=== PATIENT | female | born 1995 | race Caucasian/White ===

== ENCOUNTER 2019-03-31 00:10 | Emergency (ER) | payer SELFPAY ==
[2019-03-31 01:03] LABS: ABSOLUTE EOSINOPHILS # (AUTO) 0.2 10^3/uL (0.0-0.6); ABSOLUTE LYMPHOCYTES (AUTO) 1.6 10^3/uL (0.5-4.7); ABSOLUTE MONOCYTES (AUTO) 0.5 10^3/uL (0.1-1.4); ABSOLUTE NEUT (AUTO) 5.7 10^3/uL (1.7-8.2); BASOPHILS % (AUTO) 0.4 % (0-2); EOSINOPHILS % (AUTO) 2.1 % (0-6); HEMATOCRIT 40.1 % (36.0-47.0); HEMOGLOBIN 13.8 g/dL (12.0-15.5); MEAN CORPUSCULAR HEMOGLOBIN 30.5 pg (27.0-33.4); MEAN CORPUSCULAR HGB CONC 34.4 g/dL (32.0-36.0); MEAN CORPUSCULAR VOLUME 89 fl (80-97); MONOCYTES % (AUTO) 6.4 % (3-13); PLATELET COUNT 336 10^3/uL (150-450); RED BLOOD COUNT 4.52 10^6/uL (3.72-5.28); RED CELL DISTRIBUTION WIDTH 12.4 % (11.5-14.0); SEGMENTED NEUTROPHILS % (AUTO) 71.1 % (42-78); TOTAL CELLS COUNTED % (AUTO) 100 %
[2019-03-31 01:13] LABS: APPEARANCE,URINE CLOUDY; BILIRUBIN,URINE NEGATIVE (NEGATIVE); COLOR,URINE YELLOW; GLUCOSE, URINE NEGATIVE (NEGATIVE); KETONES,URINE NEGATIVE (NEGATIVE); LEUKOCYTE ESTERASE,URINE NEGATIVE (NEGATIVE); NITRITE,URINE NEGATIVE (NEGATIVE); PROTEIN,URINE NEGATIVE (NEGATIVE); URINE SPECIFIC GRAVITY 1.015; UROBILINOGEN,URINE NEGATIVE mg/dL (<2.0)
[2019-03-31 01:25] LABS: ALBUMIN 4.5 g/dL (3.5-5.0); ALKALINE PHOSPHATASE 82 U/L (38-126); ANION GAP 12 (5-19); ASPARTATE AMINO TRANSFERASE 28 U/L (14-36); BILIRUBIN,DIRECT 0.3 mg/dL (0.0-0.4); BILIRUBIN,TOTAL 0.4 mg/dL (0.2-1.3); BLOOD UREA NITROGEN 20 mg/dL (7-20); CALCIUM 10.3 mg/dL (8.4-10.2); CARBON DIOXIDE 26 mmol/L (22-30); CHLORIDE 102 mmol/L (98-107); GLUCOSE 88 mg/dL (75-110); POTASSIUM 3.9 mmol/L (3.6-5.0); TOTAL PROTEIN 7.9 g/dL (6.3-8.2)
[2019-03-31 01:33] LABS: ALCOHOL < 10 mg/dL (NONE DETECTED)
[2019-03-31 02:06] LABS: URINE AMPHETAMINES SCREEN NEGATIVE; URINE BARBITURATES SCREEN NEGATIVE; URINE BENZODIAZEPINES SCREEN NEGATIVE; URINE COCAINE SCREEN NEGATIVE; URINE MARIJUANA (THC) SCREEN NEGATIVE; URINE METHADONE SCREEN NEGATIVE; URINE PHENCYCLIDINE SCREEN NEGATIVE
[2019-03-31] MEDS ORDERED: LIDOCAINE 2% INJ (20 MG/ML) 20 ML MDV INJ ONE (02:08)
--- NOTE | 2019-03-31 02:13 | ER Document Report ---
ED General - General Chief Complaint: Seizure Stated Complaint: POSS SEIZURE Time Seen by Provider: 03/31/19 01:49 Primary Care Provider: MIKA CHOW MD [Primary Care Provider] - Follow up as needed CONSTANTIN PAGE MD [NO LOCAL MD] - Follow up as needed Notes: 23 year old female brought in by EMS for possible seizure at home. Patient states she was she has a history of hemiplegic migraine with seizures. States that typically when she feels one coming on she lays herself down on the ground after making sure her children are stable and then she lays there while her arms shake. States that today she was able to get home from work in time to lay down on the ground and then she laid there while her arms were shaking like shivers. Did not lose consciousness and was eventually able to tell her that she thought had gone on long enough and that he should take her to the emergency department because she felt she needed medications. Patient cannot tell me exactly what medication she thought she needed. States that she used to have good results from sumatriptan but she has been out of that for some time. Currently follows with Dr. Chow as her primary care physician, has not been referred to a neurologist here locally since moving. Patient states demond's migraine started on her left zoroastrian and radiates down behind her left ear, states that usually it starts on the right side and then will bounce between the 2 temples. She has had migraines start behind her left ear previously however and she has frequently had these episodes that she describes as seizures in the past. Denies any fevers or vomiting, denies any blurry vision. Denies any numbness or tingling. TRAVEL OUTSIDE OF THE [place] IN LAST 30 DAYS: No - Related Data Allergies/Adverse Reactions: No Known Allergies Allergy (Unverified 03/31/19 00:26) Past Medical History - General Information source: Patient - Social History Smoking Status: Never Smoker Frequency of alcohol use: None Drug Abuse: None Family History: Reviewed & Not Pertinent Patient has suicidal ideation: No Patient has homicidal ideation: No Psychiatric Medical History: Reports: Hx Attention Deficit Hyperactivity Disord er Past Surgical History: Reports: Hx Section Review of Systems - Review of Systems Constitutional: No symptoms reported EENT: No symptoms reported Cardiovascular: No symptoms reported Neurological/Psychological: See HPI -: Yes All other systems reviewed and negative Physical Exam - Vital signs Vitals: Temp Pulse Resp BP Pulse Ox 98.2 F 88 15 123/68 98 03/31/19 00:10 03/31/19 00:10 03/31/19 00:10 03/31/19 00:10 03/31/19 00:10 Interpretation: Normal - Notes Notes: GENERAL: Alert, interacts well. No acute distress. Sitting up in bed. HEAD: Normocephalic, atraumatic EYES: Pupils equal, round and reactive to light, extraocular movements intact. ENT: Oral mucosa moist, tongue midline. Nares patent, no rhinorrhea, no pain tympanic membrane injection, no fluid behind the tympanic membrane. NECK: Full range of motion, supple, trachea midline. LUNGS: Clear to auscultation bilaterally, no wheezes, rales or rhonchi, no respiratory distress. HEART: Regular rate and rhythm, no murmurs, gallops, rubs. ABDOMEN: Soft, nontender, nondistended, bowel sounds present in all 4 quadrants. EXTREMITIES: Moves all 4 extremities spontaneously, no edema, radial and dorsalis pedis pulses 2/4 bilaterally. No cyanosis. NEUROLOGICAL: Alert and oriented x3, normal speech, cranial nerves II through XII grossly intact, biceps and patellar DTRs 2+ bilaterally. PSYCH: Normal mood, normal affect. SKIN: Warm, Dry, normal turgor, no rashes or lesions noted. Course - Re-evaluation Re-evalutation: 03/31/19 02:13 CBC unremarkable, CMP unremarkable, test negative, urinalysis shows small blood, alcohol is undetectable. 03/31/19 03:11 Pain and usually completely relieved by 2% lidocaine intranasally for a sphenopalatine block. Pain relief lasted 10 minutes. Pain has now returned. Patient will be given traditional migraine cocktail of Toradol, Compazine and Benadryl. 03/31/19 04:44 Pain is resolved. Patient will be discharged. - Vital Signs Vital signs: Temp Pulse Resp BP Pulse Ox 98.2 F 88 20 116/83 96 03/31/19 00:10 03/31/19 00:10 03/31/19 03:01 03/31/19 03:00 03/31/19 03:01 - Laboratory Result Diagrams: 03/31/19 00:55 03/31/19 00:55 Laboratory results interpreted by me: 03/31/19 03/31/19 00:55 00:55 Calcium 10.3 H Urine Blood SMALL H Discharge - Discharge Clinical Impression: Migraine Qualifiers: Migraine type: unspecified Status migrainosus presence: with status migrainosus Intractability: intractable Qualified Code(s): G43.911 - Migraine, unspecified, intractable, with status migrainosus Condition: Stable Disposition: HOME, SELF-CARE Additional Instructions: Today you were treated for a headache, you initially had relief with lidocaine squirted in your nose but this wore off after 10 minutes. We then treated you with Toradol, Compazine and Benadryl. These are all safe to have a single dose of while nursing. Long-term use of Benadryl may decrease your supply. Today you reported that you may have had a seizure. Having uncontrollable shaking of your arms but still being wide-awake and being able to talk during these shaking is not consistent with a typical seizure. I strongly recommend that you follow-up with neurology as an outpatient and continue to pursue having the medications previously prescribed by your neurologist filled. Until you have seen a neurologist who confirms my suspicion that today's episode was not a seizure you are not allowed to drive. Please return to the emergency department for worsening headache, fevers, loss of consciousness or any new or concerning symptoms. Referrals: MIKA CHOW MD [Primary Care Provider] - Follow up as needed CONSTANTIN PAGE MD [NO LOCAL MD] - Follow up as needed
[2019-03-31] MEDS ORDERED: PROCHLORPERAZINE EDISYLATE INJ 10 MG/2 ML VIAL IV ONE (03:02)
[2019-03-31] MEDS ORDERED: KETOROLAC TROMETHAMINE INJ/PF 30 MG/1 ML SDV IV ONE (03:02)
[2019-03-31] MEDS ORDERED: DIPHENHYDRAMINE HCL 50 MG/ML VIAL IV ONE (03:02)
[2019-03-31 04:57] VITALS: BP 105/76
== END 2019-03-31 04:57 | disposition home or self-care (01) ==
LOC: EDBD → ER 00:10
DX: G43.911 Migraine, unspecified, intractable, with status migrainosus (principal); R56.9 Unspecified convulsions
CPT/HCPCS: 99284; 96374; 96375; 36415; 80307 ×2; 83735; 84703; 85025; 80053; 81001; J3490; J1200; J1885; J0780

== ENCOUNTER 2019-09-13 16:02 | Emergency (ER) | payer SELFPAY ==
--- NOTE | 2019-09-13 18:07 | ER Document Report ---
ED Medical Screen (RME) - General Chief Complaint: Headache Stated Complaint: HEADACHES Time Seen by Provider: 09/13/19 17:56 Primary Care Provider: MIKA CHOW MD [Primary Care Provider] - Follow up as needed Notes: HPI: 24-year-old female who reports a history of migraine type headaches accompanied by seizure-like activity states she has been passing out at work over the last month. States sometimes she will have an aura with these headaches and supposed seizures. States that when she has these episodes at work she does remember everything during the seizure. No incontinence of urine or bowel. States she has had these for several years last evaluation was approximately 3 years ago down in [place]. May have had an abnormal MRI or CT she is not sure. She is unsure if she might be . Has no abdominal pain nausea vomiting. She initially presented tonight requesting a work note for clearance to go back to work despite these episodes as she cannot afford to go see her primary care provider in [facility] to get this note. She currently does not have vision change, nausea or vomiting. Does report a headache that started around 430 after she got to the emergency department. PHYSICAL EXAMINATION: No acute distress. No photophobia. Patient has no slurred speech no facial droop. Patient is alert and oriented x3. Strength equal 5/5 bilateral upper and lower extremities. Gait is normal. I have greeted and performed a rapid initial assessment of this patient. A comprehensive ED assessment and evaluation of the patient, analysis of test results and completion of medical decision making process will be conducted by an additional ED providers. TRAVEL OUTSIDE OF THE [place] IN LAST 30 DAYS: No - Related Data Allergies/Adverse Reactions: No Known Allergies Allergy (Verified 09/13/19 17:53) Home Medications: imitrex Past Medical History - Social History Chew tobacco use (# tins/day): No Frequency of alcohol use: None Drug Abuse: None Psychiatric Medical History: Reports: Hx Attention Deficit Hyperactivity Disorder Past Surgical History: Reports: Hx Section Physical Exam - Vital signs Vitals: Temp Pulse Resp BP Pulse Ox 98.9 F 101 H 20 108/69 96 09/13/19 16:09 09/13/19 16:09 09/13/19 16:09 09/13/19 16:09 09/13/19 16:09 Course - Vital Signs Vital signs: Temp Pulse Resp BP Pulse Ox 98.9 F 101 H 20 108/69 96 09/13/19 17:53 09/13/19 16:09 09/13/19 16:09 09/13/19 16:09 09/13/19 16:09 Doctor's Discharge - Discharge Referrals: MIKA CHOW MD [Primary Care Provider] - Follow up as needed
[2019-09-13 18:25] LABS: ABSOLUTE EOSINOPHILS # (AUTO) 0.1 10^3/uL (0.0-0.6); ABSOLUTE LYMPHOCYTES (AUTO) 1.8 10^3/uL (0.5-4.7); ABSOLUTE MONOCYTES (AUTO) 0.6 10^3/uL (0.1-1.4); ABSOLUTE NEUT (AUTO) 5.9 10^3/uL (1.7-8.2); BASOPHILS % (AUTO) 0.3 % (0-2); EOSINOPHILS % (AUTO) 0.8 % (0-6); HEMOGLOBIN 14.2 g/dL (12.0-15.5); LYMPHOCYTES % (AUTO) 21.7 % (13-45); MEAN CORPUSCULAR HGB CONC 34.7 g/dL (32.0-36.0); MEAN CORPUSCULAR VOLUME 89 fl (80-97); MONOCYTES % (AUTO) 6.8 % (3-13); PLATELET COUNT 382 10^3/uL (150-450); RED BLOOD COUNT 4.59 10^6/uL (3.72-5.28); RED CELL DISTRIBUTION WIDTH 12.7 % (11.5-14.0); SEGMENTED NEUTROPHILS % (AUTO) 70.4 % (42-78); TOTAL CELLS COUNTED % (AUTO) 100 %; WHITE BLOOD COUNT 8.3 10^3/uL (4.0-10.5)
[2019-09-13 18:41] LABS: APPEARANCE,URINE CLOUDY; BILIRUBIN,URINE NEGATIVE (NEGATIVE); COLOR,URINE AMBER; GLUCOSE, URINE NEGATIVE (NEGATIVE); KETONES,URINE NEGATIVE (NEGATIVE); LEUKOCYTE ESTERASE,URINE MODERATE (NEGATIVE); NITRITE,URINE NEGATIVE (NEGATIVE); PROTEIN,URINE 30 mg/dL (NEGATIVE); URINE SPECIFIC GRAVITY 1.019
[2019-09-13 18:43] LABS: ALBUMIN 4.3 g/dL (3.5-5.0); ALKALINE PHOSPHATASE 53 U/L (38-126); ANION GAP 10 (5-19); ASPARTATE AMINO TRANSFERASE 25 U/L (14-36); BILIRUBIN,TOTAL 0.5 mg/dL (0.2-1.3); BLOOD UREA NITROGEN 10 mg/dL (7-20); CALCIUM 9.7 mg/dL (8.4-10.2); CARBON DIOXIDE 21 mmol/L (22-30); CHLORIDE 105 mmol/L (98-107); GLUCOSE 89 mg/dL (75-110)
--- NOTE | 2019-09-13 19:25 | RADIOLOGY REPORT (SQ) ---
EXAM DESCRIPTION: CT HEAD WITHOUT IMAGES COMPLETED DATE/TIME: 09/13/2019 6:47 pm REASON FOR STUDY: headache, seizures COMPARISON: None. TECHNIQUE: Axial images acquired through the brain without intravenous contrast. Images reviewed wi th bone, brain and subdural windows. Additional sagittal and coronal reconstructions were generated. Images stored on PACS. All CT scanners at this facility use dose modulation, iterative reconstruction, and/or weight based d osing when appropriate to reduce radiation dose to as low as reasonably achievable (ALARA). [facility]: Dose Right [facility]: CareDose [facility]: Dose Right [facility]: Teradose 4D [facility]: [employer] RADIATION DOSE: CT Rad equipment meets quality standard of care and radiation dose reduction techniq ues were employed. CTDIvol: 53.2 mGy. DLP: 964 mGy-cm. mGy. LIMITATIONS: None. FINDINGS: VENTRICLES: Normal size and contour. CEREBRUM: No masses. No hemorrhage. No midline shift. No evidence for acute infarction. Normal gra y/white matter differentiation. No areas of low density in the white matter. CEREBELLUM: No masses. No hemorrhage. No alteration of density. No evidence for acute infarction. EXTRAAXIAL SPACES: No fluid collections. No masses. ORBITS AND GLOBE: No intra- or extraconal masses. Normal contour of globe without masses. CALVARIUM: No fracture. PARANASAL SINUSES: No fluid or mucosal thickening. SOFT TISSUES: No mass or hematoma. OTHER: No other significant finding. IMPRESSION: NORMAL BRAIN CT WITHOUT CONTRAST. EVIDENCE OF ACUTE STROKE: NO. COMMENT: Quality ID # [id number]: Final reports with documentation of one or more dose reduction techniques (e.g., Automated exposure control, adjustment of the mA and/or kV according to patient size, use of iterative reconstruction technique) TECHNICAL DOCUMENTATION: JOB ID: [id number] 2010 [employer]- All Rights Reserved Reading location - IP/workstation name: [email or web address]
--- NOTE | 2019-09-13 19:36 | EKG REPORT ---
SEVERITY:- OTHERWISE NORMAL ECG - SINUS ARRHYTHMIA, RATE [id number] : Confirmed by: Gabrielle Miller MD 13-Sep-2019 19:35:14
--- NOTE | 2019-09-13 20:22 | RADIOLOGY REPORT (SQ) ---
US PELVIS HISTORY: Pelvic pain. COMPARISON: None. TECHNIQUE: Grayscale, color Doppler, and spectral Doppler ultrasound images of the pelvis were obtained. FINDINGS: There is a single intrauterine gestation in variable presentation with heart rate of 155 bpm. The placenta is anterior. Estimated gestational age is 15 weeks 5 days. Cervix is closed and measures 2.8 cm. Largest vertical pocket is 3.6 x 4.4 cm. IMPRESSION: Single live IUP of 15 weeks 5 days as above.
--- NOTE | 2019-09-13 22:08 | ER Document Report ---
ED General - General Chief Complaint: Headache Stated Complaint: HEADACHES Time Seen by Provider: 09/13/19 17:56 Primary Care Provider: MIKA CHOW MD [Primary Care Provider] - Follow up as needed LEXA RUANO MD [ACTIVE STAFF] - Follow up as needed TRAVEL OUTSIDE OF THE [place] IN LAST 30 DAYS: No - HPI Notes: Patient is a 24-year-old female who presents to the emergency department for evaluation. She has a history of hemiplegic migraines, syncopal episodes, these have been ongoing for several years. She states over the last month she has had several more. She states she knows this coming on. She states she started to feel dizzy and lightheaded. Then she gets a sensation in her eyebrows. She knows that she may pass out, she states normally her left side goes out, then her right side goes out, then her face droops. She is on Imitrex, which helps her at times. As well as Tylenol. She is also on another medication for migraines, its relatively new, and she is unsure as to its approval in . On further questioning, the patient has not had a menstrual period since March. She has had 2 other uneventful pregnancies. - Related Data Allergies/Adverse Reactions: No Known Allergies Allergy (Verified 09/13/19 17:53) Home Medications: imitrex Past Medical History - General Information source: Patient - Social History Smoking Status: Never Smoker Chew tobacco use (# tins/day): No Frequency of alcohol use: None Drug Abuse: None Family History: Reviewed & Not Pertinent Patient has homicidal ideation: No Neurological Medical History: Reports: Hx Migraine Psychiatric Medical History: Reports: Hx Attention Deficit Hyperactivity Disorder Past Surgical History: Reports: Hx Section - X2 Review of Systems - Review of Systems Cardiovascular: See HPI Physical Exam - Vital signs Vitals: Temp Pulse Resp BP Pulse Ox 98.9 F 101 H 20 108/69 96 09/13/19 16:09 09/13/19 16:09 09/13/19 16:09 09/13/19 16:09 09/13/19 16:09 - Notes Notes: 09/13/19 22:11 Vital signs reviewed, please refer to chart. Head is normocephalic, atraumatic. Pupils equal round, reactive to light. Neck is supple without meningismus. Heart is regular rate and rhythm. Lungs are clear to auscultation bilaterally. Abdomen is gravid, nontender, normoactive bowel sounds throughout. Extremities without cyanosis, clubbing. Posterior calves are nontender. Peripheral pulses are equal. Skin is warm and dry. Patient is awake, alert, oriented x3. Cranial nerves II - XII are grossly intact without focal neurological deficits. Strength is plus 5 out of 5 bilateral upper and lower extremities. Sensation is intact. Reflexes symmetrical. Intact [id number], rapid alternating mov ements, [id number]. Course - Re-evaluation Re-evalutation: 09/13/19 22:12 Patient presents to the emergency department for evaluation. She is initially seen through triage. She had a test which was found to be positive, ultrasound confirmed a 15-week gestation present. Her laboratory investigations are otherwise unremarkable. Her urinalysis is contaminated. Her neurological exam here is normal. I explained to the patient she should not take her Imitrex nor her other migraine medication until this is discussed with OB. We will refer her onto OB for further care. She is amenable to this plan. Otherwise, I suspect that she is having increased migraines to secondary to hormonal changes. She is to rest and stay hydrated. She is to avoid caffeine, alcohol, nicotine. She is to return to the emergency department for worsening or new concerning symptoms of any sort. - Vital Signs Vital signs: Temp Pulse Resp BP Pulse Ox 98.9 F 101 H 20 108/69 96 09/13/19 17:53 09/13/19 16:09 09/13/19 16:09 09/13/19 16:09 09/13/19 16:09 - Laboratory Result Diagrams: 09/13/19 18:10 09/13/19 18:10 Laboratory results interpreted by me: 09/13/19 09/13/19 09/13/19 18:10 18:10 18:10 Sodium 135.5 L Carbon Dioxide 21 L Beta HCG, Quant 26106.00 H Urine Protein 30 H Urine Blood SMALL H Urine Urobilinogen 2.0 H Ur Leukocyte Esterase MODERATE H Urine Ascorbic Acid 20 H Urine HCG, Qual POSITIVE H - Diagnostic Test Radiology reviewed: Reports reviewed Radiology results interpreted by me: 09/13/19 22:[address] 09/13/19 18:04 IMPRESSION: NORMAL BRAIN CT WITHOUT CONTRAST. EVIDENCE OF ACUTE STROKE: NO. Transvaginal US 09/13/19 18:46 IMPRESSION: Single live IUP of 15 weeks 5 days as above. - EKG Interpretation by Me Additional EKG results interpreted by me: 09/13/19 22:14 Sinus arrhythmia with a rate of 91 bpm. Normal axis and intervals. No acute ST changes concerning for ischemia or infarction. Discharge - Discharge Clinical Impression: Migraine, Condition: Stable Disposition: HOME, SELF-CARE Instructions: Migraine Headache ([facility]), ([facility]) Additional Instructions: Please continue your regular vitamins. Discontinue your migraine medications. Follow-up with OB, explain you are 15 weeks have not yet received any care. You can follow-up with our on-call OB, listed above. If you develop vaginal bleeding, pain, or any other new or concerning symptoms, please return immediately to the emergency department for reevaluation. Referrals: MIKA CHOW MD [Primary Care Provider] - Follow up as needed LEXA RUANO MD [ACTIVE STAFF] - Follow up as needed
[2019-09-13 22:52] VITALS: BP 108/70
== END 2019-09-13 22:52 | disposition home or self-care (01) ==
LOC: ER 16:02
DX: O26.892 Other specified pregnancy related conditions, second trimester (principal); G43.909 Migraine, unspecified, not intractable, without status migrainosus; Z3A.15 15 weeks gestation of pregnancy
CPT/HCPCS: 36415; 70450; 76817; 80053; 81001; 81025; 84702; 85025; 93005; 93010; 93976; 99284

== ENCOUNTER 2020-02-12 12:05 | Outpatient (CLI) | payer MEDICAID ==
--- NOTE | 2020-02-12 13:13 | Non Stress Test Report ---
Non Stress Test Datetime Report Generated by CPN: 02/12/2020 13:13 DEMOGRAPHIC EGA NST: 37.3 VITAL SIGNS Temperature - NST: 97.8 Pulse - NST: 82 RESP - NST: 17 MONITORING Monitor Explained: Monitor Explained; Test Explained; Patient Verbalized Understanding Time on Monitor: 02/12/2020 12:30 Time off Monitor: 02/12/2020 13:03 NST Duration: 33 NST INTERVENTIONS NST Interventions: PO Hydration Physician Notified NST: J. Irwin, CNM BABY A: [id number] BABY A Movement : Present Contraction Frequency : 0 FHR Baseline : 145 Accelerations : 15X15 Decelerations : None Variability : Moderate 6-25bpm NST Review: Meets Criteria for Reactive NST NST Review and Verified By : GABRIELLE Felipe Results: Reactive NST REPORT Report Trigger: Send Report
== END 2020-02-12 13:08 | disposition home or self-care (01) ==
LOC: LC 12:05
PROVIDERS: ATTEND Obstetrics & Gynecology
DX: O36.8930 Maternal care for other specified fetal problems, third trimester, not applicable or unspecified (principal); Z3A.37 37 weeks gestation of pregnancy
CPT/HCPCS: 59025; 94760

== ENCOUNTER 2020-02-13 15:48 | Outpatient (CLI) | payer MEDICAID ==
[2020-02-13 16:57] LABS: APPEARANCE,URINE CLOUDY; BILIRUBIN,URINE NEGATIVE (NEGATIVE); COLOR,URINE YELLOW; GLUCOSE, URINE NEGATIVE (NEGATIVE); KETONES,URINE NEGATIVE (NEGATIVE); LEUKOCYTE ESTERASE,URINE LARGE (NEGATIVE); NITRITE,URINE NEGATIVE (NEGATIVE); PROTEIN,URINE NEGATIVE (NEGATIVE); URINE SPECIFIC GRAVITY 1.013; UROBILINOGEN,URINE NEGATIVE mg/dL (<2.0)
[2020-02-13 17:13] LABS: URINE AMPHETAMINES SCREEN NEGATIVE; URINE BARBITURATES SCREEN NEGATIVE; URINE BENZODIAZEPINES SCREEN NEGATIVE; URINE COCAINE SCREEN NEGATIVE; URINE MARIJUANA (THC) SCREEN NEGATIVE; URINE METHADONE SCREEN NEGATIVE; URINE PHENCYCLIDINE SCREEN NEGATIVE
--- NOTE | 2020-02-13 17:20 | Non Stress Test Report ---
Non Stress Test Datetime Report Generated by CPN: 02/13/2020 17:20 DEMOGRAPHIC Test Number: 1 EGA NST: 36.1 VITAL SIGNS Temperature - NST: 98.1 Pulse - NST: 101 RESP - NST: 18 NBPSYS NST: 99 NBPDIA NST: 61 MONITORING Monitor Explained: Monitor Explained; Test Explained; Patient Verbalized Understanding Time on Monitor: 02/13/2020 16:11 Time off Monitor: 02/13/2020 17:06 NST Duration: 55 NST INTERVENTIONS NST Interventions: PO Hydration; Reposition Patient Physician Notified NST: C. Horn CNM BABY A: [id number] BABY A Movement : Present Contraction Frequency : Irregular with irritabilty FHR Baseline : 155 Accelerations : 15X15 Decelerations : None Variability : Moderate 6-25bpm NST Review: Meets Criteria for Reactive NST NST Review and Verified By : Selene Brown RN NST Results: Reactive NST REPORT Report Trigger: Send Report
== END 2020-02-13 17:18 | disposition home or self-care (01) ==
LOC: LC 15:48
PROVIDERS: ATTEND Obstetrics & Gynecology
DX: O47.03 False labor before 37 completed weeks of gestation, third trimester (principal); Z3A.36 36 weeks gestation of pregnancy; Z88.6 Allergy status to analgesic agent
CPT/HCPCS: 59025; 80307; 81005

== ENCOUNTER 2020-03-04 05:41 | Inpatient (IN) | payer MEDICAID ==
[2020-02-28 10:06] LABS: ABSOLUTE EOSINOPHILS # (AUTO) 0.1 10^3/uL (0.0-0.6); ABSOLUTE LYMPHOCYTES (AUTO) 1.2 10^3/uL (0.5-4.7); ABSOLUTE MONOCYTES (AUTO) 1.1 10^3/uL (0.1-1.4); ABSOLUTE NEUT (AUTO) 7.4 10^3/uL (1.7-8.2); BASOPHILS % (AUTO) 0.4 % (0-2); EOSINOPHILS % (AUTO) 0.7 % (0-6); HEMATOCRIT 33.3 % (36.0-47.0); HEMOGLOBIN 11.2 g/dL (12.0-15.5); LYMPHOCYTES % (AUTO) 12.6 % (13-45); MEAN CORPUSCULAR HEMOGLOBIN 29.2 pg (27.0-33.4); MEAN CORPUSCULAR HGB CONC 33.5 g/dL (32.0-36.0); MEAN CORPUSCULAR VOLUME 87 fl (80-97); MONOCYTES % (AUTO) 11.1 % (3-13); PLATELET COUNT 306 10^3/uL (150-450); RED BLOOD COUNT 3.82 10^6/uL (3.72-5.28); RED CELL DISTRIBUTION WIDTH 13.4 % (11.5-14.0); SEGMENTED NEUTROPHILS % (AUTO) 75.2 % (42-78); TOTAL CELLS COUNTED % (AUTO) 100 %; WHITE BLOOD COUNT 9.9 10^3/uL (4.0-10.5)
[2020-02-28 10:21] LABS: APPEARANCE,URINE CLOUDY; BILIRUBIN,URINE NEGATIVE (NEGATIVE); COLOR,URINE AMBER; GLUCOSE, URINE NEGATIVE (NEGATIVE); KETONES,URINE 20 mg/dL (NEGATIVE); LEUKOCYTE ESTERASE,URINE LARGE (NEGATIVE); NITRITE,URINE POSITIVE (NEGATIVE); PROTEIN,URINE 30 mg/dL (NEGATIVE); URINE SPECIFIC GRAVITY 1.019
[2020-02-28 10:24] LABS: URINE AMPHETAMINES SCREEN NEGATIVE; URINE BARBITURATES SCREEN NEGATIVE; URINE BENZODIAZEPINES SCREEN NEGATIVE; URINE COCAINE SCREEN NEGATIVE; URINE MARIJUANA (THC) SCREEN NEGATIVE; URINE METHADONE SCREEN NEGATIVE; URINE PHENCYCLIDINE SCREEN NEGATIVE
[~2020-03-04 05:41] MED LIST: CEFAZOLIN 2 GM/D5W RTU 2 GM/50 ML RTUPB IV PRN; LACTATED RINGERS 1000 ML IV PRN; LIDOCAINE 0.5% INJ-PF (5 MG/ML) 50 ML SDV SUBCUT PRN; RINGERS SOLUTION,LACTATED 1,000 ML IV PRN
[2020-03-04] MEDS ORDERED: KETOROLAC TROMETHAMINE INJ/PF 30 MG/1 ML SDV ONE (07:16)
[2020-03-04] MEDS ORDERED: PHENYLEPHRINE HCL INJ/PF 10 MG/1 ML SDV ONE (07:16)
[2020-03-04] MEDS ORDERED: FENTANYL CITRATE INJ/PF 100 MCG/2 ML AMPUL ONE (07:16)
[2020-03-04] MEDS ORDERED: OXYTOCIN 10 UNIT/ML VIAL ONE (07:16)
[2020-03-04] MEDS ORDERED: ACETAMINOPHEN 1,000 MG/100 ML RTUPB IV ONE (07:17)
[2020-03-04] MEDS ORDERED: ONDANSETRON HCL INJ/PF 4 MG/2 ML SDV ONE (07:17)
[2020-03-04] MEDS ORDERED: OXYTOCIN/0.9 % SODIUM CHLORIDE 30 UNIT/500 ML RTUINJ ONE (07:17)
[2020-03-04] MEDS ORDERED: MIDAZOLAM 2 MG/2 ML INJ ONE (07:38)
[2020-03-04] MEDS ORDERED: GLYCOPYRROLATE INJ 0.4 MG/2 ML VIAL ONE (07:38)
[2020-03-04] MEDS ORDERED: FENTANYL CITRATE INJ/PF 100 MCG/2 ML AMPUL IV PRN ×3 (08:17)
[2020-03-04] MEDS ORDERED: DIPHENHYDRAMINE HCL 50 MG/ML VIAL IV PRN (08:17)
[2020-03-04] MEDS ORDERED: MORPHINE SULFATE 10 MG/ML INJ IV PRN (08:17)
[2020-03-04] MEDS ORDERED: PROMETHAZINE HCL INJ 25 MG/1 ML VIAL IV PRN ×2 (08:17→09:15)
[2020-03-04] MEDS ORDERED: MEPERIDINE HCL/PF INJ 25 MG/1 ML DISP.SYRIN IV PRN (08:17)
[2020-03-04] MEDS ORDERED: ACETAMINOPHEN 1,000 MG/100 ML RTUPB IV PRN (09:15)
[2020-03-04] MEDS ORDERED: OXYTOCIN/0.9 % SODIUM CHLORIDE 30 UNIT/500 ML RTUINJ IV PRN (09:15)
[2020-03-04] MEDS ORDERED: DIPH/PERTUSS(ACELL)/TETANUS VAC/PF 0.5 ML SYR (>=10YO) IM PRN (09:15)
[2020-03-04] MEDS ORDERED: RINGERS SOLUTION,LACTATED 1,000 ML IV PRN (09:15)
[2020-03-04] MEDS ORDERED: MEASLES,MUMPS&RUBELLA VACC/PF 0.5 ML VIAL SUBCUT PRN (09:15)
[2020-03-04] MEDS ORDERED: OXYCODONE-ACETAMINOPHEN 5-325 MG TABLET PO PRN (09:15)
[2020-03-04] MEDS ORDERED: ACETAMINOPHEN 325 MG TABLET PO PRN (09:15)
[2020-03-04] MEDS ORDERED: SIMETHICONE 80 MG TAB.CHEW PO PRN (09:15)
--- NOTE | 2020-03-04 09:22 | Operative Report ---
Operative Report DATE OF SURGERY: 03/04/20 PREOPERATIVE DIAGNOSIS: IUP @ 39, previous c/section, undesired fertility POSTOPERATIVE DIAGNOSIS: same OPERATION: Repeat low transverse hysterotomy section with [place] bilateral tubal ligation SURGEON: AKANKSHA PETERS ANESTHESIA: Spinal TISSUE REMOVED OR ALTERED: Bilateral fallopian tube segments COMPLICATIONS: None ESTIMATED BLOOD LOSS: 850 cc INTRAOPERATIVE FINDINGS: Female cephalic presentation presentation Apgars of 8 and 9 PROCEDURE: The patient was taken to the operating room, prepared and draped in anormal sterile fashion in a supine position with a leftward tilt. A transverse skin incision was made with a scalpel and carried through tothe underlying layer of fascia with the same scalpel. The fascia was excised in the midline and extended laterally with Melvin. The fascia was then dissected from the rectus muscle sharply with Melvin and the rectus muscle was divided and the peritoneal cavity was entered sharply with the same Metzenbaum. With good visualization of the bladder and the uterus the bladder blade was inserted. The hysterotomy was nicked with a scalpel and extended laterally with surgeon finger fraction. The infant was thendelivered atraumatically. The nose and mouth were suctioned with a suction bulb, the cord was clamped and cut and handed off to awaiting pediatricians. Cord blood was collected. The placenta was removed manually. The uterus was exteriorized and cleared of clots and debris. The hysterotomy was closed with 0 Monocryl in a running, locked fashion. A second layer of the same suture was used to imbricate to ensure hemostasis. Attention was then turned to the fallopian tubes where the right fallopian tube was grasped with a Bonnie, the mesosalpinx was divided with a Bovie. a 3-1/2 cm segment of fallopian tube was tied off with 2 pieces of 2-0 chromic.this segment was ligated using Metzenbaums and the pedicles were made hemostatic with the Bovie. This procedure was repeated on the left fallopian tube without difficulty. The uterus was returned to the abdomen and peritoneal cavity was cleared of clots and debris. The pedicles were inspected and they were still hemostatic. The rectus muscle and peritoneum were repaired with mattress stitch of 2-0 Chromic. The fascia was closed with 0-Vicryl. The subcutaneous layer was closed with plain catgut and the skin was closed with 4-0 Vicryl. The patient tolerated the procedure well. Sponge, lap, and needle counts correct x2 and the patient was taken to recovery in stable condition.
--- NOTE | 2020-03-04 09:50 | Warning Signs in Babies ---
VOD Warning Signs Datetime Report Generated by [facility]: 03/04/2020 09:49 VOD#608 -Warning Signs in Babies: Needs to be viewed. (02/12/2020 12:40:Rosina Benedict RN)
--- NOTE | 2020-03-04 10:37 | Delivery Summary ---
Del Sum A-C Datetime Report Generated by CPN: 03/04/2020 10:37 DELIVERY PERSONNEL DELIVERY PERSONNEL: [id number] Delivery Doctor:: Bina Nicole MD [employer]:: [place] [facility] CRNA Fishing Rod Assembler:: Rosina Benedict RN Neonatal Nurse Practitioner:: JAMIA Strickland Nursery Nurse:: Kizzy Burton RN Pipeline Dispatcher/PET RESORT CONCIERGE: Nini Harvey CST Pipeline Dispatcher/PET RESORT CONCIERGE: Janene Martínez, ST MATERNAL INFORMATION Delivery Anesthesia: Spinal Medications After Delivery: Pitocin Bolus-Please Comment; Pitocin 30 Units in 500ml NS/D5W Meds After Delivery Comment: Pitocin 20 units in 600mLs LR open bolus followed by 30 units in 500mLs NS open bolus Delivery QBL: 460 Maternal Complications: None LABOR SUMMARY EDC: 03/11/2020 00:00 MEMBRANES Membranes Rupture Method: Artificial Rupture of Membranes: 03/04/2020 08:18 Length of Rupture (hr): 0.00 Amniotic Fluid Color: Light Meconium Amniotic Fluid Amount: Copious Amniotic Fluid Odor: None STAGES OF LABOR Stage 3 hr: 0 Stage 3 min: 2 VAGINAL DELIVERY Laceration Extension #1: N/A Laceration Repair: Not Applicable Sponge Count Correct: N/A Sharps Count Correct: N/A CSECTION DELIVERY Primary Indication: N/A Secondary Indication: Repeat Elective CSection Urgency: Scheduled CSection Incidence: Repeat Labor: No Labor Elective: Elective CSection Incision: Lower Uterine Transverse Sterilization Procedure: [place] BABY A INFORMATION Infant Delivery Date/Time: 03/04/2020 08:18 Method of Delivery: Nurse Controlled Delivery: No Born in Route : No : N/A Forceps: N/A Vacuum Extraction: N/A Shoulder Dystocia : No PRESENTATION/POSITION BABY A Presentation: Cephalic Cephalic Presentation: N/A Breech Presentation: N/A PLACENTA INFORMATION BABY A Placenta Delivery Time : 03/04/2020 08:20 Placenta Method of Delivery: Manual Removal Placenta Status: Delivered SCORES BABY A Heart Rate 1 min: >100 bpm Resp Effort 1 min: Good Cry Reflex Irritability 1 min: Cough or Sneeze or Pulls Away Muscle Tone 1 min: Active Motion Color 1 min: Body [place], Extremities Blue Resuscitation Effort 1 min: Tactile Stimulation SCORE 1 MIN: 9 Heart Rate 5 min: >100 bpm Resp Effort 5 min: Good Cry Reflex Irritability 5 min: Cough or Sneeze or Pulls Away Muscle Tone 5 min: Active Motion Color 5 min: Body [place], Extremities Blue Resuscitation Effort 5 min: N/A SCORE 5 MIN: 9 INFORMATION BABY A Gestational Age at Delivery: 39.0 Gestational Status: Full Term- 39- 40.6 Weeks Outcome : Liveborn Condition : Stable Sex: Female IDENTIFICATION BABY A Infant Verification Date/Time: 03/04/2020 08:25 ID Band Number: [id number] Mother's Name Verified: Yes RN Verifying : Ruiz GABRIELLE Benedict Additional Verifying Personnel: Shelton Burton RN WEIGHT/LENGTH BABY A Infant Birthweight (gm): 4330 Infant Weight (lb): 9 Infant Weight (oz): 9 Infant Length (in): 21.00 Length (cm): 53.34 CORD INFORMATION BABY A No. Cord Vessels: 3 Nuchal Cord : N/A Cord Blood Taken: Yes-For Eval (Mom's Blood Type - or O+) Infant Suction: Mouth; Nose ASSESSMENT BABY A Infant Complications: Meconium; Polyhydramnios Physical Findings at Delivery: Within Normal Limits Respirations: Appears Normal Skin to Skin: No Marble Ceiling Installer/ALS Called : No Care By: nursery nurse Transferred To: Nursery
--- NOTE | 2020-03-04 10:37 | Birth Certificate Data ---
Cert Data Datetime Report Generated by CPN: 03/04/2020 10:37 CERTIFICATE DATA Delivery Provider: Bina Nicole MD (03/04/2020 08:33:Rosina Benedict RN) 48b. Now Livin (02/12/2020 12:40:Robyn Cunha, RN) RISK FACTORS IN THIS 49c. Previous Births: 0 (02/12/2020 12:40:Robyn Cunha RN) Mother's Height 50b. Height Inches: 65 (02/13/2020 16:05:QS system process) Mother's Weight 51b. Weight at Delivery (lbs): 163 (03/04/2020 05:49:QS system process) Infections Present/Treated Results this Hospital Visit : Negative (02/12/2020 12:40:Jessica Maynard RN) Results this Hospital Visit: Negative (02/12/2020 12:40:Jessica Maynard RN) Results this Hospital Visit: Negative (02/12/2020 12:40:Jessica Maynard RN) 53j. Test Result: Negative (02/12/2020 12:40:Jessica Maynard RN) Onset of Labor 56a. PROM >12 Hrs: 0.00 (02/12/2020 12:40:QS system process) 57c. Non-Vertex Presentation A: N/A (02/12/2020 12:40:Rosina Benedict RN) 57f. Mat [place] or Temp >100.4: 98.1 (02/12/2020 12:40:Rosina Benedict RN) 57g. Moderate/Heavy Meconium: Light Meconium (02/12/2020 12:40:Rosina Benedict RN) 57h. Intolerance of Labor: N/A (02/12/2020 12:40:Rosina Benedict RN) : Repeat Elective (02/12/2020 12:40:Rosina Benedict RN) Method of Delivery 58a. Forceps - Unsuccessful A: N/A (02/12/2020 12:40:Rosina Benedict RN) 58b. Vacuum - Unsuccessful A: N/A (02/12/2020 12:40:Rosina Benedict RN) 58c. Presentation at 58c. Presentation at - A : N/A (02/12/2020 12:40:Rosina Benedict RN) 58c. Presentation at - A : N/A (02/12/2020 12:40:Rosina Benedict RN) 58c. Presentation at - A : Cephalic (02/13/2020 16:11:Robyn Cunha RN) Final Route and Method of Del 58d. Baby A Route/Delivery: (02/12/2020 12:40:Rosina Benedict RN) 58e. Trial of Labor Attempted A: N/A (02/12/2020 12:40:Rosina Benedict RN) Birthweight Baby A: 4330 (02/12/2020 12:40:Kizzy Burton RN) 60a. Pounds : 9 (02/12/2020 12:40:QS system process) 60b. Ounces: 9 (02/12/2020 12:40:QS system process) 61. GA at Delivery Baby A: 39.0 (02/12/2020 12:40:Rosina Benedict RN) : Full Term- 39- 40.6 Weeks (02/12/2020 12:40:QS system process) 62a. 5 Minute Baby A: 9 (02/12/2020 12:40:QS system process)
[2020-03-04] MEDS: MORPHINE SULFATE 10 MG/ML INJ IV PRN ×2 (11:43→17:20)
[2020-03-04] MEDS: PRENATAL VITAMIN W DHA CAPSULE PO SCH (11:58)
[2020-03-04] MEDS: DOCUSATE SODIUM 100 MG CAPSULE PO SCH ×2 (11:58→17:21)
[2020-03-04] MEDS: KETOROLAC TROMETHAMINE INJ/PF 30 MG/1 ML SDV IV SCH ×2 (14:09→21:53)
[2020-03-04] MEDS: OXYCODONE-ACETAMINOPHEN 5-325 MG TABLET PO PRN (14:09)
[2020-03-04] MEDS: AMPICILLIN SODIUM/SULBACTAM NA 3 GM in NORMAL SALINE 100 ML IV SCH (22:15)
[2020-03-05] MEDS: OXYCODONE-ACETAMINOPHEN 5-325 MG TABLET PO PRN ×3 (00:04→16:55)
[2020-03-05] MEDS ORDERED: IBUPROFEN 800 MG TABLET PO SCH (03:00)
[2020-03-05] MEDS: AMPICILLIN SODIUM/SULBACTAM NA 3 GM in NORMAL SALINE 100 ML IV SCH ×2 (05:12→13:28)
[2020-03-05] MEDS: IBUPROFEN 800 MG TABLET PO SCH ×4 (05:12→23:41)
[2020-03-05 07:11] LABS: HEMATOCRIT 29.6 % (36.0-47.0); MEAN CORPUSCULAR HEMOGLOBIN 29.3 pg (27.0-33.4); MEAN CORPUSCULAR HGB CONC 33.7 g/dL (32.0-36.0); MEAN CORPUSCULAR VOLUME 87 fl (80-97); PLATELET COUNT 297 10^3/uL (150-450); RED CELL DISTRIBUTION WIDTH 13.4 % (11.5-14.0); WHITE BLOOD COUNT 11.5 10^3/uL (4.0-10.5)
[2020-03-05] MEDS: PRENATAL VITAMIN W DHA CAPSULE PO SCH (09:12)
[2020-03-05] MEDS: DOCUSATE SODIUM 100 MG CAPSULE PO SCH ×2 (09:12→17:08)
--- NOTE | 2020-03-05 09:43 | PDOC PROGRESS REPORT ---
Subjective-OB Progress Note for:: 03/05/20 Subjective: Pt doing well, no concerns. She reports light bleeding, +flatus and regular diet. Has not been out of bed yet. FC to bedside drainage, was left in d/t severe swelling of labia. She was + nitrites in UA on admission, on Unasyn IV. Physical Exam (OB) Vital Signs: Temp Pulse Resp BP Pulse Ox 97.4 F 65 16 80/58 L 100 03/05/20 07:41 03/05/20 07:41 03/05/20 07:41 03/05/20 07:41 03/05/20 07:41 Intake & Output 03/04/20 03/05/20 03/06/20 06:59 06:59 06:59 Intake Total 2140 400 Output Total 3650 Balance -1510 400 - Dressing Removed: No - op site Incision: Dressing Closure Type: Surgical Glue - Maternal Morbidity 59. Maternal Morbidity (serious complications experinced by the mother associated with labor and delivery: None of the above - Lochia Lochia Amount: Small 10-25 ml Lochia Color: Rubra/Red - Abdomen Description: Firm, Round Hernia Present: No Fundal Description: Firm, Midline Fundal Height: u/u - u/2 Objective-Diagnostic Laboratory: 03/05/20 06:50 03/05/20 06:50 WBC 11.5 H RBC 3.40 L Hgb 10.0 L Hct 29.6 L MCV 87 MCH 29.3 MCHC 33.7 RDW 13.4 Plt Count 297 Assessment and Plan(PN) - Assessment and Plan (1) UTI (urinary tract infection) Qualifiers: Urinary tract infection type: acute cystitis Hematuria presence: with hematuria Qualified Code(s): N30.01 - Acute cystitis with hematuria Is this a current diagnosis for this admission?: Yes (2) Status post repeat low transverse section Is this a current diagnosis for this admission?: Yes (3) Previous section Is this a current diagnosis for this admission?: Yes - Time Spent with Patient Time with patient: Less than 15 minutes Medications reviewed and adjusted accordingly: Yes - Disposition Anticipated Discharge Disposition: Home, Self Care Anticipated Discharge Timeframe: within 24 hours
[2020-03-06] MEDS: OXYCODONE-ACETAMINOPHEN 5-325 MG TABLET PO PRN ×2 (04:21→18:00)
[2020-03-06] MEDS: IBUPROFEN 800 MG TABLET PO SCH ×4 (05:49→23:05)
[2020-03-06] MEDS: DOCUSATE SODIUM 100 MG CAPSULE PO SCH ×2 (09:00→17:59)
[2020-03-06] MEDS: PRENATAL VITAMIN W DHA CAPSULE PO SCH (09:00)
--- NOTE | 2020-03-06 10:10 | PDOC PROGRESS REPORT ---
Subjective-OB Progress Note for:: 03/06/20 Subjective: OOB in room, feeling good, unsure if baby can go, baby not going home today, pain under control with meds, Physical Exam (OB) Vital Signs: Temp Pulse Resp BP Pulse Ox 97.5 F 87 17 89/58 L 95 03/06/20 07:32 03/06/20 07:32 03/06/20 07:32 03/06/20 07:32 03/06/20 07:32 Intake & Output 03/05/20 03/06/20 03/07/20 06:59 06:59 06:59 Intake Total 2140 2680 380 Output Total 3650 1200 Balance -1510 1480 380 - PIH/Pre-Eclampsia Clonus: Negative Headache: Absent Epigastric Pain: No Visual Changes: No - Dressing Removed: No Incision: Dressing Closure Type: Surgical Glue - Maternal Morbidity 59. Maternal Morbidity (serious complications experinced by the mother associated with labor and delivery: None of the above - Lochia Lochia Amount: Scant < 10 ml Lochia Color: Rubra/Red - Abdomen Description: Soft, Round Hernia Present: No Fundal Description: Firm, Midline Fundal Height: u/u - u/2 Objective-Diagnostic Laboratory: 03/05/20 06:50 Assessment and Plan(PN) - Assessment and Plan (1) Depression Qualifiers: Depression Type: unspecified Qualified Code(s): F32.9 - Major depressive disorder, single episode, unspecified Is this a current diagnosis for this admission?: Yes (2) Anxiety Is this a current diagnosis for this admission?: Yes (3) Previous section Is this a current diagnosis for this admission?: Yes (4) Status post repeat low transverse section Is this a current diagnosis for this admission?: Yes - Time Spent with Patient Time with patient: Less than 15 minutes Medications reviewed and adjusted accordingly: Yes - Disposition Anticipated Discharge Disposition: Home, Self Care Anticipated Discharge Timeframe: within 24 hours - home tomorrow
[2020-03-06] MEDS ORDERED: DIPHENHYDRAMINE HCL 50 MG CAPSULE PO PRN (18:52)
[2020-03-07] MEDS: OXYCODONE-ACETAMINOPHEN 5-325 MG TABLET PO PRN (04:40)
[2020-03-07] MEDS: IBUPROFEN 800 MG TABLET PO SCH ×2 (05:54→11:52)
[2020-03-07] MEDS: DOCUSATE SODIUM 100 MG CAPSULE PO SCH (09:19)
[2020-03-07] MEDS: PRENATAL VITAMIN W DHA CAPSULE PO SCH (09:19)
--- NOTE | 2020-03-07 09:34 | PDOC PROGRESS REPORT ---
Subjective-OB Progress Note for:: 03/07/20 Subjective: Doing well, no c/o, feels alot better today, fine rash on abd and red probably from binder keeping heat in, itching is better, pain improved, OOB, walking, eating well, passing gas Physical Exam (OB) Vital Signs: Temp Pulse Resp BP Pulse Ox 97.4 F 98 17 101/59 L 97 03/07/20 08:20 03/07/20 07:37 03/07/20 07:37 03/07/20 07:37 03/07/20 07:37 Intake & Output 03/06/20 03/07/20 03/08/20 06:59 06:59 06:59 Intake Total 2680 2160 Output Total 1200 Balance 1480 2160 - PIH/Pre-Eclampsia Clonus: Negative Headache: Absent Epigastric Pain: No Visual Changes: No - Dressing Removed: No Incision: Dressing Closure Type: Surgical Glue - Maternal Morbidity 59. Maternal Morbidity (serious complications experinced by the mother associated with labor and delivery: None of the above - Lochia Lochia Amount: Scant < 10 ml Lochia Color: Rubra/Red - Abdomen Description: Soft Hernia Present: No Fundal Description: Firm, Midline Fundal Height: u/u - u/2 Objective-Diagnostic Laboratory: 03/05/20 06:50 Assessment and Plan(PN) - Assessment and Plan (1) Depression Qualifiers: Depression Type: unspecified Qualified Code(s): F32.9 - Major depressive disorder, single episode, unspecified Is this a current diagnosis for this admission?: Yes (2) Anxiety Is this a current diagnosis for this admission?: Yes (3) Previous section Is this a current diagnosis for this admission?: Yes (4) Status post repeat low transverse section Is this a current diagnosis for this admission?: Yes - Time Spent with Patient Time with patient: Less than 15 minutes Medications reviewed and adjusted accordingly: Yes - Disposition Anticipated Discharge Disposition: Home, Self Care Anticipated Discharge Timeframe: within 24 hours
--- NOTE | 2020-03-07 09:38 | PDOC DISCHARGE SUMMARY ---
Impression - Admit/DC Date/PCP Admission Date/Primary Care Provider: 03/04/20 05:41 AKANKSHA PETERS MD Discharge Date: 03/07/20 - Discharge Diagnosis (1) Depression Is this a current diagnosis for this admission?: Yes (2) Anxiety Is this a current diagnosis for this admission?: Yes (3) Previous section Is this a current diagnosis for this admission?: Yes (4) Status post repeat low transverse section Is this a current diagnosis for this admission?: Yes - Additional Information Resuscitation Status: Full Code Discharge Diet: As Tolerated, Regular Discharge Activity: Activity As Tolerated, No Lifting Over 10 Pounds, Pelvic Rest, No tub bath Referrals: AKANKSHA PETERS MD [Primary Care Provider] - Prescriptions: Oxycodone HCl/Acetaminophen [Percocet 5-325 mg Tablet] 1 tab PO Q4HP PRN #20 tablet PRN Reason: Ibuprofen [Motrin 800 mg Tablet] 800 mg PO Q6 #30 tablet Home Medications: Prenat 115/Iron Fum/Folic/Dss [ 19 Tablet] 1 tab PO DAILY 02/12/20 Fluticasone Propionate [Flovent Hfa] 1 puff PO DAILY 02/13/20 Albuterol Sulfate [Ventolin 0.042% Neb 1.25 mg/3 mL Ampul] 1.25 mg NEB DAILY PRN 02/28/20 Ibuprofen [Motrin 800 mg Tablet] 800 mg PO Q6 #30 tablet 03/06/20 Oxycodone HCl/Acetaminophen [Percocet 5-325 mg Tablet] 1 tab PO Q4HP PRN #20 tablet 03/06/20 HPI Gestational Age: 39 Reason(s) for Admission: Ceasarean Section-Repeat Procedures: NST, Ultrasound Intrapartum Procedure(s): : Low Cervical, Transverse Hospital Course Hospital Course: routine 59. Maternal Morbidity (serious complications experinced by the mother associated with labor and delivery: None of the above Results Laboratory Results: WBC 11.5 10^3/uL (4.0-10.5) H 03/05/20 06:50 RBC 3.40 10^6/uL (3.72-5.28) L 03/05/20 06:50 Hgb 10.0 g/dL (12.0-15.5) L 03/05/20 06:50 Hct 29.6 % (36.0-47.0) L 03/05/20 06:50 MCV 87 fl (80-97) 03/05/20 06:50 MCH 29.3 pg (27.0-33.4) 03/05/20 06:50 MCHC 33.7 g/dL (32.0-36.0) 03/05/20 06:50 RDW 13.4 % (11.5-14.0) 03/05/20 06:50 Plt Count 297 10^3/uL (150-450) 03/05/20 06:50 Lymph % (Auto) 12.6 % (13-45) L 02/28/20 09:20 [place] % (Auto) 11.1 % (3-13) 02/28/20 09:20 Eos % (Auto) 0.7 % (0-6) 02/28/20 09:20 Baso % (Auto) 0.4 % (0-2) 02/28/20 09:20 Absolute Neuts (auto) 7.4 10^3/uL (1.7-8.2) 02/28/20 09:20 Absolute Lymphs (auto) 1.2 10^3/uL (0.5-4.7) 02/28/20 09:20 Absolute Monos (auto) 1.1 10^3/uL (0.1-1.4) 02/28/20 09:20 Absolute Eos (auto) 0.1 10^3/uL (0.0-0.6) 02/28/20 09:20 Absolute Basos (auto) 0.0 10^3/uL (0.0-0.2) 02/28/20 09:20 Seg Neutrophils % 75.2 % (42-78) 02/28/20 09:20 Urine Color JENNIFFER 02/28/20 09:20 Urine Appearance CLOUDY 02/28/20 09:20 Urine pH 6.0 (5.0-9.0) 02/28/20 09:20 Ur Specific [place] 1.019 02/28/20 09:20 Urine Protein 30 mg/dL (NEGATIVE) H 02/28/20 09:20 Urine Glucose (UA) NEGATIVE mg/dL (NEGATIVE) 02/28/20 09:20 Urine Ketones 20 mg/dL (NEGATIVE) H 02/28/20 09:20 Urine Blood SMALL (NEGATIVE) H 02/28/20 09:20 Urine Nitrite POSITIVE (NEGATIVE) H 02/28/20 09:20 Urine Bilirubin NEGATIVE (NEGATIVE) 02/28/20 09:20 Urine Urobilinogen 2.0 mg/dL (<2.0) H 02/28/20 09:20 Ur Leukocyte Esterase LARGE (NEGATIVE) H 02/28/20 09:20 Urine WBC (Auto) 133 /HPF 02/28/20 09:20 Urine RBC (Auto) 32 /HPF 02/28/20 09:20 Urine Bacteria (Auto) 2+ /HPF 02/28/20 09:20 Squamous Epi Cells Auto 12 /HPF 02/28/20 09:20 Urine Mucus (Auto) FEW /LPF 02/28/20 09:20 Urine Yeast (Budding) PRESENT /HPF 02/28/20 09:20 Urine Ascorbic Acid NEGATIVE (NEGATIVE) 02/28/20 09:20 Urine Opiates Screen NEGATIVE 02/28/20 09:20 Urine Methadone Screen NEGATIVE 02/28/20 09:20 Ur Barbiturates Screen NEGATIVE 02/28/20 09:20 Ur Phencyclidine Scrn NEGATIVE 02/28/20 09:20 Ur Amphetamines Screen NEGATIVE 02/28/20 09:20 U Benzodiazepines Scrn NEGATIVE 02/28/20 09:20 Urine Cocaine Screen NEGATIVE 02/28/20 09:20 U Marijuana (THC) Screen NEGATIVE 02/28/20 09:20 COVID-19 Source See comment 02/28/20 09:22 COVID-19 (COSME) Not Detected (Not Detect) 02/28/20 09:22 Blood Type O POSITIVE 03/04/20 06:49 Antibody Screen NEGATIVE 03/04/20 06:49 Plan Health Concerns: rash on abd, [facility] did not pick up man pain medication yesterday and stores closed today Plan of Treatment: vistaril for rash, hydrocortisone, rev S*S to report, have Dr. Roberto look at rash before dc Goals: no complications Time Spent: Less than 30 Minutes
[2020-03-07] MEDS ORDERED: HYDROCORTISONE 0.5% CREAM 28.35 GM TP SCH (10:00)
[2020-03-07 11:26] VITALS: BP 96/55
[2020-03-07] MEDS ORDERED: HYDROXYZINE PAMOATE 25 MG CAPSULE PO SCH (12:00)
== END 2020-03-07 14:25 | disposition home or self-care (01) | DRG 785 ==
LOC: 2S 05:41
PROVIDERS: ADMIT Obstetrics & Gynecology; ATTEND Obstetrics & Gynecology
PROC: 10D00Z1 Extraction of Products of Conception, Low, Open Approach (ICD-10-PCS; principal; 2020-03-04)
PROC: 0UB70ZZ Excision of Bilateral Fallopian Tubes, Open Approach (ICD-10-PCS; 2020-03-04)
DX: O34.211 Maternal care for low transverse scar from previous cesarean delivery (principal); Z30.2 Encounter for sterilization; Z20.828 Contact with and (suspected) exposure to other viral communicable diseases; O99.344 Other mental disorders complicating childbirth; F41.9 Anxiety disorder, unspecified; F32.9 Major depressive disorder, single episode, unspecified; Z28.21 Immunization not carried out because of patient refusal; Z3A.39 39 weeks gestation of pregnancy; Z37.0 Single live birth
CPT/HCPCS: 1961; 36415; 80307; 81001; 85025; 85027; 86850; 86900; 86901; 87635; 88302; 94760; 94799; C9803; J0131; J0295; J0690; J1885; J2250; J2270; J2370; J2405; J2590; J3010; J3490; J7050